=== PATIENT | female | born 1985 | race Caucasian/White ===

== ENCOUNTER 2016-06-10 10:51 | Emergency (ER) | payer OTHER ==
[~2016-06-10] VITALS: Ht 167.6 cm; Wt 70.0 kg
[~2016-06-10 10:51] MED LIST: BROM500T2 PO; DHEA PO; DIPH25TA24 PO; EPP3/2 IM; HYDR1CAP85 PO; MEDERMA TD; OMEG10007 PO; PAPAYA PO; [UNRECOGNIZED DRUG - CODE] PO; [UNRECOGNIZED DRUG - OTHER] PO; [UNRECOGNIZED DRUG - OTHER] PO; [UNRECOGNIZED DRUG - OTHER] PO; [UNRECOGNIZED DRUG - OTHER] PO; [UNRECOGNIZED DRUG - OTHER] PO; [UNRECOGNIZED DRUG - OTHER] PO; [UNRECOGNIZED DRUG - OTHER] PO; [UNRECOGNIZED DRUG - OTHER] PO; [UNRECOGNIZED DRUG - OTHER] PO; [UNRECOGNIZED DRUG - OTHER] PO; [UNRECOGNIZED DRUG - OTHER] PO; evening primrose oil PO
[2016-06-10] MEDS ORDERED: LORAZEPAM 2 MG/ML 1 ML VIAL IV STA (10:58)
[2016-06-10 11:01] VITALS: TEMP 36.7; Ht 167.6 cm; Wt 70.0 kg
--- NOTE | 2016-06-10 11:08 | EMERGENCY ROOM VISIT NOTE ---
History Report prepared by Jodi: Gayle Blackmon Under the Supervision of: Dr. Tim Hoff D.O. First contact with patient: 10:52 Stated Complaint: MUSCLE SPASMS History of Present Illness The patient is a 30 year old female arriving by ambulance who presents to the Emergency Room with complaints of uncontrolled muscle spasms on the left side of her body, from the neck, down, since yesterday. Currently, she is in mild discomfort as she is experiencing a headache. Since the time of onset, the patient states that she has also felt dizzy and imbalanced, leading to uncontrolled falls. She states that she fell out of her chair yesterday as well. Patient also states that she was getting over a virus yesterday and she had an itchy, red, rash about her body. She also states that she felt nauseous and had been vomiting. Patient states that she recently started a new medication for hallucinations, which she states is new. She also notes history of PTSD, anxiety and schizophrenia. Case management notes that the patient was at her appointment with psych at [facility] just prior to arrival but was referred to the ED for further evaluation. Source of History: patient Onset: yesterday Position: other (left side of body from neck down) Symptom Intensity: mild Quality: other (spasms) Associated Symptoms: + rash, + vomiting Note: Patient is dizzy and feels imbalanced. Review of Systems See HPI for pertinent positives & negatives. A total of 10 systems reviewed and were otherwise negative. Past Medical & Surgical Medical Problems: (1) Anxiety (2) Anxiety State Nos (3) Appendectomy (4) Cholecystectomy (5) Depression (6) Gastroesophageal reflux disease (7) Hypoglycemia (8) Polycystic ovaries (9) Schizophrenia Nos-Unspec Surgical Problems: (1) S/P appendectomy (2) S/P cholecystectomy (3) [place] teeth extracted Family History Diabetes mellitus Social History Smoking Status: Never Smoker Alcohol Use: none Drug Use: none Marital Status: single Housing Status: lives with significant other Occupation Status: unemployed Current/Historical Medications Scheduled Cephalexin Monohydrate (Keflex), 1 CAP PO BID Clindamycin Phosphate (Topical (Cleocin-T), 1 APPLN TOP BID Docusate Sodium (Colace), 2 CAP PO HS Fluoxetine Hcl (Fluoxetine Hcl), 50 MG PO BID Levothyroxine Sodium (Levothyroxine Sodium), 1 TAB PO DAILY Loratadine (Claritin), 10 MG PO DAILY Lurasidone Hcl (Latuda), 80 MG PO BID Melatonin (Melatonin Cr), 2 TABS PO HS Omeprazole (Omeprazole), 1 TAB PO DAILY Perphenazine (Trilafon), 8 MG PO BID Vitamin E (Vitamin E 400 Iu), 400 INTER.UNIT PO DAILY Allergies Coded Allergies: BEE STING (Verified Allergy, Severe, HIVES, 06/10/16) Adhesives (Verified Allergy, Mild, SKIN IRRITATION, 06/10/16) Dairy (Unverified Allergy, Mild, HIVES, 06/10/16) Latex1 -Allergic Contact Dermititis (Unverified Allergy, Mild, HIVES, ) Weber (Unverified Allergy, Mild, 06/10/16) Wheat (Unverified Allergy, Mild, 06/10/16) Acesulfame Potassium (Verified Allergy, Unknown, _, 06/10/16) Buprenorphine (Verified Allergy, Unknown, _, 06/10/16) Naloxone (Verified Allergy, Unknown, _, 06/10/16) Physical Exam Vital Signs Date Time Temp Pulse Resp B/P Pulse Ox O2 Delivery O2 Flow Rate FiO2 06/10/16 12:56 89 20 105/74 97 Room Air 06/10/16 11:09 82 06/10/16 11:01 36.7 86 20 110/79 98 Room Air Physical Exam GENERAL: Patient is awake, alert, and in no acute distress. Patient is resting comfortably and showing no signs of anxiety EYES: The conjunctivae are clear. The pupils are round and reactive. EARS, NOSE, MOUTH AND THROAT: The nose is without any evidence of any deformity. Mucous membranes are moist tongue is midline NECK: The neck is nontender and supple. RESPIRATORY: Normal respiratory effort is noted there is no evidence of wheezing rhonchi or rales CARDIOVASCULAR: Regular rate and rhythm noted there no murmurs rubs or gallops normal S1 normal S2 GASTROINTESTINAL: The abdomen is soft. Bowel sounds are present in all quadrants. Abdomen is nontender MUSCULOSKELETAL/EXTREMITIES: There is no evidence of gross deformity full range of motion is noted in the hips and shoulders SKIN: There is no obvious evidence of any rash. There are no petechiae, pallor or cyanosis noted. NEUROLOGIC: Patient is awake alert and oriented x3 strength is symmetric patellar reflexes are 2+ bilaterally Medical Decision & Procedures ER Provider Diagnostic Interpretation: CT results as stated below per my review and radiologist interpretation. CT HEAD WITHOUT CONTRAST (CT) CLINICAL HISTORY: Dizziness COMPARISON STUDY: No previous studies for comparison. TECHNIQUE: Axial CT of the brain is performed from the vertex to the skull base. IV contrast was not administered for this examination. CT DOSE: 638.56 mGycm FINDINGS: No intra or extra-axial mass lesions are visualized. There is no CT evidence of acute cortical infarction. There is no evidence of midline shift. There is no acute hemorrhage. No calvarial fractures are visualized. There is no evidence of pathologic ventricular dilatation. There is no evidence of acute sinusitis IMPRESSION: Normal noncontrast head CT. Electronically signed by: Og Zamudio M.D. 06/10/2016 11:43 AM CHEST ONE VIEW PORTABLE CLINICAL HISTORY: dizzy COMPARISON STUDY: 10/23/2012 FINDINGS: The cardiac and mediastinal contours are normal. There is no evidence of focal pulmonary consolidation. There is no evidence of failure. No pleural effusions are visualized.[ IMPRESSION: No active disease in the chest. Electronically signed by: Og Zamudio M.D. 06/10/2016 11:28 AM Laboratory Results 06/10/16 11:10 Red Blood Count 4.64, Mean Corpuscular Volume 84.7, Mean Corpuscular Hemoglobin 30.2, Mean Corpuscular Hemoglobin Concent 35.6, Mean Platelet Volume 9.4, Neutrophils (%) (Auto) 59.8, Lymphocytes (%) (Auto) 29.4, Monocytes (%) (Auto) 9.2, Eosinophils (%) (Auto) 1.2, Basophils (%) (Auto) 0.4, Neutrophils # (Auto) 3.11, Lymphocytes # (Auto) 1.53, Monocytes # (Auto) 0.48, Eosinophils # (Auto) 0.06, Basophils # (Auto) 0.02 06/10/16 11:10 Test 06/10/16 11:10 White Blood Count 5.20 K/uL (4.8-10.8) Red Blood Count 4.64 M/uL (4.2-5.4) Hemoglobin 14.0 g/dL (12.0-16.0) Hematocrit 39.3 % (37-47) Mean Corpuscular Volume 84.7 fL (80-100) Mean Corpuscular Hemoglobin 30.2 pg (25-34) Mean Corpuscular Hemoglobin Concent 35.6 g/dl (32-36) Platelet Count 193 K/uL (130-400) Mean Platelet Volume 9.4 fL (7.4-10.4) Neutrophils (%) (Auto) 59.8 % Lymphocytes (%) (Auto) 29.4 % Monocytes (%) (Auto) 9.2 % Eosinophils (%) (Auto) 1.2 % Basophils (%) (Auto) 0.4 % Neutrophils # (Auto) 3.11 K/uL (1.4-6.5) Lymphocytes # (Auto) 1.53 K/uL (1.2-3.4) Monocytes # (Auto) 0.48 K/uL (0.11-0.59) Eosinophils # (Auto) 0.06 K/uL (0-0.5) Basophils # (Auto) 0.02 K/uL (0-0.2) RDW Standard Deviation 39.4 fL (36.4-46.3) RDW Coefficient of Variation 12.8 % (11.5-14.5) Immature Granulocyte % (Auto) 0.0 % Immature Granulocyte # (Auto) 0.00 K/uL (0.00-0.02) Anion Gap 10.0 mmol/L (3-11) Est Creatinine Clear Calc Drug Dose 77.7 ml/min Estimated GFR () 88.2 Estimated GFR (Non- 76.1 BUN/Creatinine Ratio 12.0 (10-20) Calcium Level 9.0 mg/dl (8.5-10.1) Magnesium Level 2.2 mg/dl (1.8-2.4) Total Bilirubin 0.2 mg/dl (0.2-1) Direct Bilirubin < 0.1 mg/dl (0-0.2) Aspartate Amino Transf (AST/SGOT) 25 U/L (15-37) Alanine Aminotransferase (ALT/SGPT) 52 U/L (12-78) Alkaline Phosphatase 87 U/L (45-117) Total Protein 7.9 gm/dl (6.4-8.2) Albumin 4.2 gm/dl (3.4-5.0) Lipase 255 U/L (73-393) Thyroid Stimulating Hormone (TSH) 1.460 uIu/ml (0.300-4.500) Free Thyroxine 1.27 ng/dl (0.80-1.60) Human Chorionic Gonadotropin, Qual NEG (NEG) Laboratory results per my review. Medications Administered Medications (Trade) Dose Ordered Sig/Piero Route Start Time Stop Time Status Last Admin Dose Admin Lorazepam (Ativan Inj) 0.5 mg NOW STAT IV 06/10/16 10:58 06/10/16 11:00 DC 06/10/16 11:22 0.5 MG ED Course 1053: The patient was evaluated in room C10. A complete history and physical examination were performed. 1058: Ativan 0.5 mg IV was ordered. 1200: Case management has spoken with the patient and her mother. She feels it is safe for the patient to go home. 1215: Upon reevaluation, the patient was doing well and appeared to be resting more comfortably. I updated her and her mother on the results of her radiology reports and lab tests. Discharge instructions were also discussed at this time. They verbalized their understanding and agreement with the treatment plan, and the patient is now ready for disposition. Medical Decision Differential diagnosis: Etiologies such as benign positional vertigo, dehydration, hypovolemia, anemia, tumor, infection, hypoglycemia, electrolyte abnormalities, cardiac sources, intracerebral event, toxicologic, neurologic, as well as others were entertained. Nursing notes reviewed. The patient is a 31-year-old female who presented to the emergency department for an evaluation of muscle spasms. The patient had intermittent episodes of shaking in her extremities which she described as muscle spasms. Her neurologic exam was normal. She was started on a new medication recently which her doctor was unsure if it was the cause of the spasms. The patient was medically cleared in the emergency department. I discussed patient's laboratory and radiographic studies with her and her mother. The patient was also evaluated by the mental health returned case inspector in the emergency department. No mental health needs were identified at this time. The patient was encouraged to follow-up with her primary care physician as soon as possible. She was also encouraged to return to the emergency department immediately if symptoms change worsen or if the need arises. Impression Primary Impression: Muscle spasm Scribe Attestation The scribe's documentation has been prepared under my direction and personally reviewed by me in its entirety. I confirm that the note above accurately reflects all work, treatment, procedures, and medical decision making performed by me. Departure Information Dispostion Home / Self-Care Referrals Owen Mcknight M.D. (MEDICAL) (PCP) Forms HOME CARE DOCUMENTATION FORM, IMPORTANT VISIT INFORMATION Patient Instructions A Signature Page, My [facility] Additional Instructions Call your family doctor to schedule a follow-up appointment. Continue all medications as prescribed. Continue all medications as prescribed.
[2016-06-10 11:21] LABS: BASO % 0.4 %; BASO ABS # 0.02 K/uL (0-0.2); COMPLETE YES; EOS % 1.2 %; HEMATOCRIT 39.3 % (37-47); LYMPH % 29.4 %; LYMPH ABS # 1.53 K/uL (1.2-3.4); MEAN CELL VOLUME 84.7 fL (80-100); MEAN CORPUSCULAR HEMOGLOBIN 30.2 pg (25-34); MEAN CORPUSCULAR HGB CONC 35.6 g/dl (32-36); MEAN PLATELET VOLUME 9.4 fL (7.4-10.4); MONO % 9.2 %; NEUT % 59.8 %; PLATELET COUNT 193 K/uL (130-400); RED BLOOD COUNT 4.64 M/uL (4.2-5.4)
--- NOTE | 2016-06-10 11:30 | DIAGNOSTIC IMAGING REPORT ---
CHEST ONE VIEW PORTABLE CLINICAL HISTORY: dizzy COMPARISON STUDY: 10/23/2012 FINDINGS: The cardiac and mediastinal contours are normal. There is no evidence of focal pulmonary consolidation. There is no evidence of failure. No pleural effusions are visualized.[ IMPRESSION: No active disease in the chest. Electronically signed by: Og Zamudio M.D. 06/10/2016 11:28 AM
[2016-06-10] MEDS ORDERED: VITA400C3 PO (11:36)
[2016-06-10] MEDS ORDERED: CEPH500C PO (11:36)
[2016-06-10] MEDS ORDERED: CLIN1GEL TOP (11:36)
[2016-06-10] MEDS ORDERED: DOCU-94 PO (11:36)
[2016-06-10] MEDS ORDERED: PERP1TAB PO (11:36)
[2016-06-10] MEDS ORDERED: OMEP20TA PO (11:36)
[2016-06-10] MEDS ORDERED: FLUO27.5 PO (11:36)
[2016-06-10] MEDS ORDERED: MELA3TAB25 PO (11:36)
[2016-06-10] MEDS ORDERED: LEVO50TA6 PO (11:36)
[2016-06-10] MEDS ORDERED: LURA80TA PO (11:36)
[2016-06-10] MEDS ORDERED: CLR10 PO (11:36)
[2016-06-10 11:44] LABS: ALT/SGPT 52 U/L (12-78); AST/SGOT 25 U/L (15-37); BLOOD UREA NITROGEN 12 mg/dl (7-18); CARBON DIOXIDE 27 mmol/L (21-32); CHLORIDE 103 mmol/L (98-107); GLUCOSE 96 mg/dl (70-99); MAGNESIUM 2.2 mg/dl (1.8-2.4); POTASSIUM 3.7 mmol/L (3.5-5.1); PREG INTERNAL NEGATIVE QC NEG CLEAR BACKGROUND; PREG INTERNAL POSITIVE QC POS CONTROL LINE; SODIUM 140 mmol/L (136-145)
--- NOTE | 2016-06-10 11:44 | DIAGNOSTIC IMAGING REPORT ---
CT HEAD WITHOUT CONTRAST (CT) CLINICAL HISTORY: Dizziness COMPARISON STUDY: No previous studies for comparison. TECHNIQUE: Axial CT of the brain is performed from the vertex to the skull base. IV contrast was not administered for this examination. CT DOSE: 638.56 mGycm FINDINGS: No intra or extra-axial mass lesions are visualized. There is no CT evidence of acute cortical infarction. There is no evidence of midline shift. There is no acute hemorrhage. No calvarial fractures are visualized. There is no evidence of pathologic ventricular dilatation. There is no evidence of acute sinusitis IMPRESSION: Normal noncontrast head CT. Electronically signed by: Og Zamudio M.D. 06/10/2016 11:43 AM
[2016-06-10 11:53] LABS: ALKALINE PHOSPHATASE 87 U/L (45-117)
[2016-06-10 12:56] VITALS: BP 105/74; PULSE 89; O2SAT 97
== END 2016-06-10 13:04 | disposition home or self-care (01) ==
LOC: EDBD 10:51 → C.EDC 10:52
DX: M62.838 Other muscle spasm (principal); R21 Rash and other nonspecific skin eruption; R11.10 Vomiting, unspecified; R51 Headache; K21.9 Gastro-esophageal reflux disease without esophagitis; F32.9 Major depressive disorder, single episode, unspecified; Z79.899 Other long term (current) drug therapy

== ENCOUNTER → 2016-06-19 | Outpatient (CLI) | payer OTHER ==
[~2016-06-19] MED LIST changes: -BROM500T2 PO; +CEPH500C PO; +CLIN1GEL TOP; +CLR10 PO; -DHEA PO; -DIPH25TA24 PO; +DOCU-94 PO; -EPP3/2 IM; +FLUO27.5 PO; -HYDR1CAP85 PO; +LEVO50TA6 PO; +LURA80TA PO; -MEDERMA TD; +MELA3TAB25 PO; -OMEG10007 PO; +OMEP20TA PO; -PAPAYA PO; +PERP1TAB PO; +VITA400C3 PO; -[UNRECOGNIZED DRUG - CODE] PO; -[UNRECOGNIZED DRUG - OTHER] PO; -[UNRECOGNIZED DRUG - OTHER] PO; -[UNRECOGNIZED DRUG - OTHER] PO; -[UNRECOGNIZED DRUG - OTHER] PO; -[UNRECOGNIZED DRUG - OTHER] PO; -[UNRECOGNIZED DRUG - OTHER] PO; -[UNRECOGNIZED DRUG - OTHER] PO; -[UNRECOGNIZED DRUG - OTHER] PO; -[UNRECOGNIZED DRUG - OTHER] PO; -[UNRECOGNIZED DRUG - OTHER] PO; -[UNRECOGNIZED DRUG - OTHER] PO; -evening primrose oil PO
--- NOTE | 2016-06-19 14:16 | DIAGNOSTIC IMAGING REPORT ---
THYROID ULTRASOUND CLINICAL HISTORY: Diffuse goiter. Family history of thyroid cancer. COMPARISON STUDY: None TECHNIQUE: Sonography of the thyroid gland was performed. FINDINGS: The right thyroid lobe measures 5.7 x 1.2 x 1.6 cm. There is an isoechoic nodule with thin hypoechoic halo within the mid to lower pole of the right lobe which measures 0.8 x 0.6 x 0.7 cm. The left lobe measures 3.8 x 0.9 x 1.2 cm. A 0.3 cm hypoechoic nodule is noted within the upper pole of the left lobe. IMPRESSION: Several thyroid nodules measuring up to 8 mm. These nodules do not meet criteria for biopsy. A follow-up thyroid ultrasound in one year is recommended. Electronically signed by: Mat Canada M.D. 06/19/2016 2:14 PM Dictated Date/Time: 06/19/2016 2:09 PM
== END | disposition home or self-care (01) ==
LOC: C.ULTR 13:33
PROVIDERS: ATTEND Internal Medicine Endocrinology, Diabetes & Metabolism
DX: E04.2 Nontoxic multinodular goiter (principal)